=== PATIENT | male | born 1990 | race Two or more races ===

== ENCOUNTER 2016-10-05 16:08 | Emergency (ER) | payer OTHER ==
[~2016-10-05] VITALS: Ht 180.3 cm; Wt 109.0 kg
[2016-10-05] MEDS ORDERED: MECLIZINE CHEWABLE 25 MG TAB PO ONE (16:30)
[2016-10-05] MEDS ORDERED: MECLIZINE CHEWABLE 25 MG TAB ONE (16:37)
[2016-10-05] MEDS ORDERED: LITH150C PO (16:49)
[2016-10-05 16:56] LABS: BLOOD UREA NITROGEN 17 mg/dL (7-18)
[2016-10-05] MEDS ORDERED: ONDANSETRON ODT 4 MG PO ONE (17:00)
[2016-10-05] MEDS ORDERED: DEXAMETHASONE 4 MG TABLET PO ONE (17:00)
[2016-10-05] MEDS ORDERED: ONDANSETRON ODT 4 MG ONE (17:03)
[2016-10-05] MEDS ORDERED: DEXAMETHASONE 4 MG TABLET ONE (17:03)
[2016-10-05 17:31] LABS: DIFF TOTAL CELLS COUNTED 100 CELL DIFF
[2016-10-05 17:35] LABS: VERIFY COUNTS? YES
[2016-10-05 18:13] VITALS: BP 139/64
== END 2016-10-05 18:16 | disposition home or self-care (01) ==
LOC: ED 18:00
DX: H81.391 Other peripheral vertigo, right ear (principal); F17.200 Nicotine dependence, unspecified, uncomplicated
CPT/HCPCS: 36415; 80048; 82040; 85025; 93005; 99285; Q0162

== ENCOUNTER 2016-10-14 18:28 | Emergency (ER) | payer OTHER ==
[~2016-10-14] VITALS: Ht 180.3 cm; Wt 111.1 kg
[~2016-10-14 18:28] MED LIST: LITH150C PO
[2016-10-14] MEDS ORDERED: MECL-76 PO (18:47)
[2016-10-14] MEDS ORDERED: MECLIZINE CHEWABLE 25 MG TAB PO ONE (19:00)
[2016-10-14] MEDS ORDERED: SODIUM CHLORIDE 0.9% 1,000ML IVBOLUS ONE (19:00)
[2016-10-14] MEDS ORDERED: SODIUM CHLORIDE FLUSH 10ML SYR IVF ONE (19:00)
[2016-10-14] MEDS ORDERED: MECLIZINE CHEWABLE 25 MG TAB ONE (19:05)
[2016-10-14 19:17] LABS: BLOOD UREA NITROGEN 17 mg/dL (7-18)
[2016-10-14] MEDS ORDERED: OMNIPAQUE 350 MG/ML, 100ML BOTTLE ONE (20:20)
[2016-10-14 21:34] VITALS: BP 151/71
== END 2016-10-14 22:41 | disposition home or self-care (01) ==
LOC: ED 20:49
DX: H81.399 Other peripheral vertigo, unspecified ear (principal); Z88.0 Allergy status to penicillin; F17.200 Nicotine dependence, unspecified, uncomplicated
CPT/HCPCS: 36415; 70450; 70496; 70498; 80048; 81003; 82040; 85025; 93005; 96360; 96361; 99285; J7030; Q9967

== ENCOUNTER 2017-04-13 13:16 | Emergency (ER) | payer OTHER ==
[~2017-04-13] VITALS: Ht 180.3 cm; Wt 112.2 kg
[~2017-04-13 13:16] MED LIST changes: +MECL-76 PO
[2017-04-13 13:23] VITALS: BP 149/90
== END 2017-04-13 14:34 | disposition home or self-care (01) ==
LOC: ED 14:28
DX: H60.92 Unspecified otitis externa, left ear (principal); J20.8 Acute bronchitis due to other specified organisms; B96.89 Other specified bacterial agents as the cause of diseases classified elsewhere; F31.9 Bipolar disorder, unspecified; Z88.0 Allergy status to penicillin
CPT/HCPCS: 99283